=== PATIENT | female | born 1965 | race Caucasian/White ===

== ENCOUNTER 2024-04-20 06:14 | Day surgery (SDC) | payer BC ==
[2024-04-20] MEDS ORDERED: LIDOCAINE HCL/PF 2% SDV 5ML VIAL ONE (06:33)
[2024-04-20] MEDS ORDERED: ROCURONIUM BROMIDE 50 MG/5 ML SYRINGE ONE ×2 (06:33→09:40)
[2024-04-20] MEDS ORDERED: ceFAZolin SODIUM 1 GM VIAL ONE ×2 (06:33→06:35)
[2024-04-20] MEDS ORDERED: PROPOFOL 40 ML ONE ×2 (06:33→07:49)
[2024-04-20] MEDS ORDERED: MIDAZOLAM HCL 2 MG/2 ML SINGLE DOSE VIAL ONE (06:33)
[2024-04-20] MEDS ORDERED: GENTAMICIN SO4 80 MG/2 ML VIAL ONE (06:35)
[2024-04-20] MEDS ORDERED: BUPIVACAINE HCL/EPINEPHRINE/PF 30 ML VIAL IJ ONE (06:35)
[2024-04-20] MEDS ORDERED: VANCOMYCIN 1,000 MG VIAL (RESTRICTED TO ID ONLY) ONE (06:35)
[2024-04-20] MEDS ORDERED: ACETAMINOPHEN INJECTION 100 ML IVPB ONE (06:56)
[2024-04-20] MEDS ORDERED: FENTANYL CITRATE/PF 50 MCG/ML VIAL ONE (08:40)
[2024-04-20] MEDS ORDERED: ONDANSETRON 4 MG/2 ML VIAL IVPUSH PRN (08:41)
[2024-04-20] MEDS ORDERED: LACTATED RINGERS SOLUTION 1,000 ML IV SCH (08:45)
[2024-04-20 09:30] VITALS: RESP 18; TEMP 97.1
[2024-04-20 10:05] VITALS: BP 120/74; PULSE 58
== END 2024-04-20 10:05 | disposition home or self-care (01) ==
LOC: FASU 06:14
PROVIDERS: ATTEND Plastic Surgery
PROC: 0HPU0JZ Removal of Synthetic Substitute from Left Breast, Open Approach (ICD-10-PCS; 2024-04-20)
PROC: 0HPT0JZ Removal of Synthetic Substitute from Right Breast, Open Approach (ICD-10-PCS; 2024-04-20)
PROC: 0HRV0JZ Replacement of Bilateral Breast with Synthetic Substitute, Open Approach (ICD-10-PCS; 2024-04-20)
PROC: 0HNV0ZZ Release Bilateral Breast, Open Approach (ICD-10-PCS; principal; 2024-04-20 07:31)
DX: Z90.13 Acquired absence of bilateral breasts and nipples (principal); N65.0 Deformity of reconstructed breast
CPT/HCPCS: 19342; 19370; L8600; 88300-TC; 88304-TC; 94760; J0131

== ENCOUNTER 2024-11-16 11:27 | Day surgery (SDC) | payer BC ==
[2024-11-10 12:37] VITALS: BMI 20.9
[2024-11-16] MEDS ORDERED: SODIUM BICARBONATE 8.4% 50 MEQ/50 ML VIAL ONE (13:46)
[2024-11-16] MEDS ORDERED: LIDOCAINE HCL 2% (20ML MULTI-DOSE VIAL) ONE (13:47)
[2024-11-16] MEDS ORDERED: BUPIVACAINE HCL/EPINEPHRINE/PF 30 ML VIAL IJ ONE (13:47)
[2024-11-16] MEDS ORDERED: EPINEPHrine 1:1000 P/F - 1 MG/ML AMP ONE (13:47)
[2024-11-16] MEDS ORDERED: ROCURONIUM BROMIDE 50 MG/5 ML SYRINGE ONE (13:50)
[2024-11-16] MEDS ORDERED: PROPOFOL 20 ML ONE (13:50)
[2024-11-16] MEDS ORDERED: MIDAZOLAM HCL 2 MG/2 ML SINGLE DOSE VIAL ONE (13:51)
[2024-11-16] MEDS ORDERED: SUCCINYLCHOLINE CHLORIDE 200 MG/10 ML SYRINGE ONE (13:52)
[2024-11-16] MEDS ORDERED: ONDANSETRON 4 MG/2 ML VIAL IVPUSH PRN (14:13)
[2024-11-16] MEDS ORDERED: LACTATED RINGERS SOLUTION 1,000 ML IV SCH (14:15)
[2024-11-16] MEDS ORDERED: GENTAMICIN SO4 80 MG/2 ML VIAL ONE (14:18)
[2024-11-16] MEDS ORDERED: VANCOMYCIN 1,000 MG VIAL (RESTRICTED TO ID ONLY) ONE (14:18)
[2024-11-16] MEDS ORDERED: oxyCODONE HCL 5 MG TABLET PO PRN ×2 (14:19)
[2024-11-16] MEDS ORDERED: PHENYLEPHRINE HCL 10 MG/1 ML SINGLE DOSE VIAL ONE (14:52)
[2024-11-16] MEDS ORDERED: ePHEDrine SULFATE 50 MG/1 ML AMPULE ONE (14:52)
[2024-11-16] MEDS ORDERED: ONDANSETRON 4 MG/2 ML VIAL ONE (15:07)
[2024-11-16] MEDS ORDERED: DEXAMETHASONE SOD PHOSPHATE 4 MG/1 ML VIAL ONE (15:07)
[2024-11-16] MEDS ORDERED: ACETAMINOPHEN INJECTION 100 ML ONE (15:49)
[2024-11-16] MEDS ORDERED: SUGAMMADEX SODIUM 200 MG/2 ML VIAL ONE (16:06)
[2024-11-16 17:16] VITALS: RESP 16
[2024-11-16 17:31] VITALS: TEMP 98.4
[2024-11-16] MEDS ORDERED: oxyCODONE HCL 5 MG TABLET ONE (17:46)
[2024-11-16 17:48] VITALS: BP 134/80
[2024-11-16 18:25] VITALS: PULSE 69
== END 2024-11-16 18:29 | disposition home or self-care (01) ==
LOC: FASU 11:27
PROVIDERS: ATTEND Plastic Surgery
PROC: 0HRU0JZ Replacement of Left Breast with Synthetic Substitute, Open Approach (ICD-10-PCS; 2024-11-16)
PROC: 0HX5XZZ Transfer Chest Skin, External Approach (ICD-10-PCS; 2024-11-16)
PROC: 0HPU0JZ Removal of Synthetic Substitute from Left Breast, Open Approach (ICD-10-PCS; principal; 2024-11-16 15:18)
DX: C50.912 Malignant neoplasm of unspecified site of left female breast (principal); Z90.12 Acquired absence of left breast and nipple; N65.0 Deformity of reconstructed breast; N65.1 Disproportion of reconstructed breast
CPT/HCPCS: 14301; 14302; 15777; 19342; 19371; L8600; 88300-TC; 88304-TC; 94760; J0131